=== PATIENT | female | born 1940 | race Caucasian/White ===

== ENCOUNTER 2016-11-26 08:21 | Day surgery (SDC) | payer MEDICARE, BC ==
[~2016-11-26 08:21] MED LIST: Bupivacaine 0.5% 50 ML MDV ONE; Lidocaine 1% with EPINEPHrine 1:100,000 50 ML MDV ONE
[2016-11-26] MEDS ORDERED: Dextrose 5%-Lactated Ringers 1,000 ML IV SCH (09:00)
[2016-11-26] MEDS ORDERED: Doxycycline 200 MG in Sodium Chloride 0.9% 100 ML IV ONE (09:00)
[2016-11-26] MEDS ORDERED: Doxycycline 200 MG in Sodium Chloride 0.9% 250 ML IV ONE (09:00)
[2016-11-26] MEDS ORDERED: Midazolam 1 MG/ML 2 ML SDV ONE (10:57)
[2016-11-26] MEDS ORDERED: fentaNYL 100 MCG/2 ML SDV ONE (10:57)
[2016-11-26] MEDS ORDERED: Propofol 200 MG/20 ML SDV ONE (10:58)
[2016-11-26] MEDS ORDERED: Linezolid 200 MG/100 ML Bag IRR ONE (11:28)
[2016-11-26 12:40] VITALS: BP 170/84
--- NOTE | 2016-12-06 10:47 | OR ---
DATE OF PROCEDURE: 11/26/2016 PREOPERATIVE DIAGNOSIS: Abscess, right groin. POSTOPERATIVE DIAGNOSES: 1. Abscess, right groin. 2. 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 PROCEDURES: Right groin exploration with: A. Drainage of abscess (54047). B. Wide excision of probable malignant mass, right groin (15252). ANESTHESIA: General. INDICATION FOR PROCEDURE: A 76-year-old female recently status post drainage of an abscess. This was initially closed per Dr. Oconnell and subsequently was opened, as it had some persistent purulent drainage. Over a period of several weeks now, it has failed to heal and the skin is now closing up, such that it does not appear to be adequately drained. Plan will be to proceed with a wide excision of the overlying skin and investigation of the wound with minimal drainage of the abscess and then the treatment of whatever operative findings might occur from that point forward. Potential risks of the procedure including bleeding, infection, injury to underlying viscera or vasculature were reviewed, and the patient wishes to proceed. DETAILS OF PROCEDURE: The patient was taken to the operating room and placed in a supine position. After general endotracheal anesthesia was induced, the right groin and surrounding areas were prepped and draped. An elliptical incision around the area of involvement was made with a transverse orientation, and this was carried down through the skin and subcutaneous tissue, thus excising the skin overlying the area of the abscess formation. Cultures of this were obtained. As one entered the cavity, it appeared that this was most likely an area of malignant tumor that may have replaced a lymph node in that area. At any rate, it appeared to be a partially necrotic malignant mass. A wide excision around this was then accomplished down to the point where all of the gross tumor was absent. This extended into the plane below the Indigo's fascia at that level, and the overall length of this was around 7 cm. The wound was then packed open with iodoform gauze. The patient was taken to the recovery room in a satisfactory condition. We will see the patient back tomorrow morning for initial dressing change in the emergency room and then go from there in terms management. We will await the Pathology report to determine what course to take from that point forward in terms of further workup. Tomas Gresham MD /[id number]
== END 2016-11-26 12:55 | disposition home or self-care (01) ==
LOC: JP.SDS 08:21
PROVIDERS: ATTEND Surgery
DX: C76.3 Malignant neoplasm of pelvis (principal); Z88.8 Allergy status to other drugs, medicaments and biological substances
CPT/HCPCS: 10061; 22905; 87070; 87075; 87205; 88305; J2020; J2250; J2704; J3010; J7042; J7050